=== PATIENT | female | born 1970 | race Caucasian/White ===

== ENCOUNTER 2019-05-20 08:31 | Day surgery (SDC) ==
--- NOTE | 2019-05-16 16:12 | EKG Report ---
Test Performed on : 05/16/2019 3:53:38 PM Test Reason : PAT Blood Pressure : / mmHG Vent. Rate : 078 BPM Atrial Rate : 078 BPM P-R Int : 150 ms QRS Dur : 074 ms QT Int : 394 ms P-R-T Axes : 042 017 056 degrees QTc Int : 449 ms Normal sinus rhythm. Normal ECG When compared with ECG of 04-NOV-2015 20:49, No significant change was found Confirmed by Leander Baker MD ([id number]) on 05/17/2019 7:00:37 AM
[2019-05-16 16:35] LABS: BASO# 0.05 X1000 (0.0-0.2); BASO% 0.6 % (0.0-0.8); EOS# 0.06 X1000 (0.0-0.7); EOS% 0.7 % (0.0-10.0); HEMATOCRIT 43.7 % (37.0-47.0); HEMOGLOBIN 14.9 g/dL (12.0-16.0); LYMPH# 2.36 X1000 (1.2-3.4); LYMPH% 26.5 % (20.5-51.1); MCHC 34.1 g/dL (33-37); MONO# 0.75 X1000 (0.11-0.59); MONO% 8.4 % (1.7-9.3); MPV 10.3 FL (7.4-10.4); NEUT% 63.8 % (42.2-75.2); PLT 296 X1000 (130-400); RDW 12.4 % (11.5-14.5); WBC 8.92 X1000 (4.8-10.8)
[2019-05-16 16:53] LABS: CALCIUM 9.6 mg/dL (8.8-10.2); CREATININE 1.1 mg/dL (0.5-0.9); POTASSIUM 4.1 mmol/L (3.5-5.1)
[2019-05-20] MEDS ORDERED: LR 1,000 ML ONE (09:20)
[2019-05-20] MEDS ORDERED: REGLAN ONE (09:20)
[2019-05-20] MEDS ORDERED: PEPCID ONE (09:20)
[2019-05-20] MEDS ORDERED: KEFZOL 1 GM/D5W 1 GM/50 ML IVPB ONE (09:20)
[2019-05-20] MEDS ORDERED: DIPRIVAN 1% ONE (11:56)
[2019-05-20] MEDS ORDERED: QUELICIN (DOSE) ONE (11:57)
[2019-05-20] MEDS ORDERED: XYLOCAINE-MPF 2% ONE (11:57)
[2019-05-20] MEDS ORDERED: SENSORCAINE 0.25%/EPI 1:200,000 ONE (11:58)
[2019-05-20] MEDS ORDERED: FENTANYL ONE (12:19)
[2019-05-20] MEDS ORDERED: ZOFRAN ONE (12:34)
[2019-05-20] MEDS ORDERED: DECADRON ONE (12:34)
[2019-05-20] MEDS ORDERED: EPHEDRINE ONE (12:44)
[2019-05-20] MEDS ORDERED: NEO-SYNEPHRINE ONE (13:24)
[2019-05-20] MEDS ORDERED: DILAUDID ONE (13:48)
[2019-05-20] MEDS ORDERED: NS 1,000 ML ONE (14:23)
[2019-05-20] MEDS: PHENERGAN ONE ×2 (14:32→14:35)
[2019-05-20] MEDS: NORCO-10 PO PRN (16:58)
[2019-05-20] MEDS ORDERED: FLU VACCINE IM ONE (20:27)
--- NOTE | 2019-05-20 21:22 | OPERATIVE NOTE ---
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 PROCEDURE: Left thyroid lobectomy. SURGEON: Pablo Appiah MD. ANESTHESIA: General. ESTIMATED BLOOD LOSS: 10 mL. COMPLICATIONS: Possible left parathyroid gland excision. SPECIMENS: Left thyroid gland. FINDINGS: The patient had a firm nodule in the left thyroid mid to upper pole. There was no obvious lymphadenopathy in the neck. The left inferior parathyroid gland appeared to be closely adherent to the thyroid gland, and may have been devitalized during the lobectomy. The superior parathyroid gland, however, appeared to be preserved. The recurrent laryngeal nerve was visualized and protected throughout the case. TECHNIQUE: The patient was brought to the operating room. General anesthesia was induced. She was prepped and draped in the usual sterile fashion. 0.25% Marcaine with epinephrine was used to anesthetize our incision which was made 2 fingerbreadths above the sternal notch. Subplatysmal flaps were raised with cautery superiorly and inferiorly, and then the strap muscles were divided in the midline with cautery. I then began dissecting the thyroid gland away from the overlying sternocleidomastoid muscle. I encountered the middle thyroid vein and divided it with the LigaSure device right as it entered the thyroid. I turned my attention to the superior pole vessels and individually dissected each one out, and divided it with the LigaSure as it entered the thyroid gland. This allowed me to bring the thyroid more into my operative field in the incision. I then dissected on top of the trachea underneath the isthmus lobe, and divided the isthmus with the LigaSure. I then turned my attention to the inferior pole. There was an almond colored, soft nodular structure that appeared to be an inferior parathyroid. I attempted to preserve it; however, it was closely adherent to the thyroid, and ultimately I think it may have been sacrificed. I was able to identify the recurrent laryngeal nerve as it traveled underneath the crossing inferior thyroid artery. The terminal branches of the inferior thyroid artery were divided as they entered the thyroid gland with the LigaSure. However, remaining more proximal portion of the artery overlying the nerve was ligated proximally and distally with 4-0 silk, and divided in between with scissors. The inferior parathyroid vessels were ligated and divided individually as they entered the thyroid gland using the LigaSure, and the remaining ligament of Thomas was divided with cautery and the LigaSure. The lobe was passed off the field. I inspected the field. There was minor bloody oozing superiorly. I irrigated with saline and suctioned this out, and then placed a small piece of Surgicel gauze. There was no significant bleeding. I then closed the strap muscles with interrupted 3-0 Polysorb, the platysma in the same fashion, and the skin with a running 4-0 subcuticular Biosyn and Steri-Strips. She was awakened in stable condition and transferred to the recovery room. cc: Pablo Appiah MD
[2019-05-20] MEDS: ZOFRAN IV PRN (21:37)
[2019-05-20] MEDS: BUPRENEX IV PRN (21:37)
[2019-05-20] MEDS: PERIDEX MT SCH (21:38)
[2019-05-21] MEDS: BUPRENEX IV PRN (01:58)
[2019-05-21] MEDS: NS 1,000 ML IV SCH ×2 (01:58→05:22)
[2019-05-21] MEDS: ZOFRAN IV PRN (01:59)
[2019-05-21] MEDS: NORCO-10 PO PRN ×2 (04:23→08:36)
[2019-05-21 07:34] VITALS: BP 127/66
[2019-05-21] MEDS: PERIDEX MT SCH (08:35)
[2019-05-21] MEDS ORDERED: NORVASC PO SCH (09:00)
[2019-05-21] MEDS ORDERED: TENORMIN PO SCH (09:00)
[2019-05-21] MEDS ORDERED: ADDERALL PO SCH (09:00)
--- NOTE | 2019-05-21 12:31 | GENERAL SURGERY PROGRESS NOTE ---
DATE: 05/21/2019 SUBJECTIVE: The patient is doing well. She reports her chest tightness that she had prior to surgery has resolved. She has not felt jittery or anxious. She has had some neck pain, but that is tolerable with medicine. She is tolerating her liquid diet. OBJECTIVE: She is afebrile. Vital signs are stable.General: She is awake, alert, oriented x3. No acute distress. Neck: Supple. Mild incisional swelling. No hematoma. Her voice is normal. LABORATORY: Serum calcium 9.1. ASSESSMENT AND PLAN: A 48-year-old female postoperative day 1 left thyroidectomy. She is stable. We will discharge her home. Instructions were given. cc: Pablo Appiah MD
== END 2019-05-21 09:25 | disposition home or self-care (01) ==
LOC: OR 08:31 → 4N 08:31 → OR 05-21 09:25
PROVIDERS: ATTEND Surgery